=== PATIENT | female | born 1975 | race Caucasian/White ===

== ENCOUNTER 2022-07-03 23:49 | Emergency (ER) | payer OTHER ==
[~2022-07-03] VITALS: Ht 185.4 cm; Wt 90.9 kg
[2022-07-04 07:48] VITALS: BP 136/84
[2022-07-04] MEDS ORDERED: IBUP-1492 PO (08:11)
== END 2022-07-04 08:22 | disposition home or self-care (01) ==
LOC: EMS 23:51
DX: M54.9 Dorsalgia, unspecified (principal); M54.2 Cervicalgia; F17.210 Nicotine dependence, cigarettes, uncomplicated; Z98.51 Tubal ligation status; V89.2XXA Person injured in unspecified motor-vehicle accident, traffic, initial encounter; Y93.89 Activity, other specified; Y92.89 Other specified places as the place of occurrence of the external cause; Y99.8 Other external cause status
CPT/HCPCS: 70450; 72125; 72128; 72131; 99284